=== PATIENT | male | born 1960 | race Caucasian/White ===

== ENCOUNTER 2018-10-23 16:54 | Emergency (ER) | payer BC, OTHER ==
[2018-10-23] MEDS ORDERED: Aspirin 81 MG Tab.Chew PO ONE (17:01)
--- NOTE | 2018-10-23 17:04 | EDM.PDOC ---
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 No N/V/ D no diaphoresis. No trauma, he has occ a dry cough. No other acute medical issues. BP 154/94 Pulse 95 RR 18 Pulse ox 98% on RA temp 36.8 Onset Date: 10/23/18 Onset Time: 12:00 Duration: Hour(s):, Intermittent, Improving Location: Reports: Chest Quality: Reports: Burning, Dull Severity: Mild Improves with: Reports: Rest Worsens with: Reports: Movement Context: Reports: Other Associated Symptoms: Reports: Chest Pain Chest Pain Score (Numeric/FACES): 4 - Related Data Allergies Allergy/AdvReac Type Severity Reaction Status Date / Time Penicillins Allergy Cannot Verified 10/23/18 17:23 Remember Home Meds: Home Meds NK [No Known Home Meds] 10/23/18 [History] ED ROS GENERAL - Review of Systems Review Of Systems: See Below Constitutional: Reports: No Symptoms HEENT: Reports: No Symptoms Respiratory: Reports: No Symptoms Cardiovascular: Reports: Chest Pain Endocrine: Reports: No Symptoms GI/Abdominal: Reports: No Symptoms : Reports: No Symptoms Musculoskeletal: Reports: No Symptoms Skin: Reports: No Symptoms Neurological: Reports: No Symptoms Psychiatric: Reports: No Symptoms Hematologic/Lymphatic: Reports: No Symptoms Immunologic: Reports: No Symptoms ED EXAM, GENERAL - Physical Exam Exam: See Below Exam Limited By: No Limitations General Appearance: Alert, WD/WN, Mild Distress Eye Exam: Bilateral Eye: Normal Inspection Ears: Normal External Exam Ear Exam: Bilateral Ear: Auricle Normal Nose: Normal Inspection, Normal Mucosa, No Blood Throat/Mouth: Normal Inspection, Normal Lips, Normal Voice, No Airway Compromise Head: Atraumatic, Normocephalic Neck: Normal Inspection, Supple, Non-Tender, Full Range of Motion Respiratory/Chest: No Respiratory Distress, Lungs Clear, Normal Breath Sounds, Other (tender ant chest wall) Cardiovascular: Normal Peripheral Pulses, Regular Rate, Rhythm, No Edema, No Gallop, No JVD, No Murmur, No Rub Peripheral Pulses: 1+: Brachial (R) GI/Abdominal: Normal Bowel Sounds, Soft, Non-Tender, No Organomegaly, No Distention, No Abnormal Bruit, No Mass, Pelvis Stable (Male) Exam: No Hernia Rectal (Males) Exam: Deferred Back Exam: Normal Inspection, Full Range of Motion Extremities: Normal Inspection, Normal Range of Motion, Non-Tender, No Pedal Edema, Normal Capillary Refill Neurological: Alert, Oriented, CN II-XII Intact, Normal Cognition, Normal Gait Psychiatric: Normal Affect, Normal Mood Skin Exam: Warm, Dry, Intact, Normal Color, No Rash Lymphatic: No Adenopathy EKG INTERPRETATION EKG Date: 10/23/18 Time: 16:55 Rhythm: NSR Rate (Beats/Min): 97 [place]: Normal P-Wave: Present (prolonged SD interwal) QRS: Normal ST-T: Normal QT: Normal Comparison: NA - No Prior EKG Course - Vital Signs Text/Narrative:: 58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 No N/V/ D no diaphoresis. No trauma, he has occ a dry cough. No other acute medical issues. CAD risk: Tobacco use BP 154/94 Pulse 95 RR 18 Pulse ox 98% on RA temp 36.8 PE: WNWD muscular male with ant chest wall pain, worse with deep inspirations and pressure applied to his chest wall. Imaging: CXR 2 views: NAD, official report is pending Labs: CBC, BMP including D Dimer and troponin were all neg Impression: Atypical chest pain Tx: ASA, Toradol, ICE Reexam: Pain subsided Plan: D/C with instructions Last Recorded V/S: Last Vital Signs Temp 36.9 C 10/23/18 16:54 Pulse 95 10/23/18 16:54 Resp 18 10/23/18 16:54 BP 129/82 10/23/18 17:49 Pulse Ox 98 10/23/18 16:54 - Orders/Labs/Meds Orders: Active Orders 24 hr Category Date Time Status EKG Documentation Completion [RC] ASDIRECTED Care 10/23/18 17:03 Active CXR [Chest 2V] [CR] Stat Exams 10/23/18 17:01 Taken Peripheral IV Insertion Adult [OM.PC] Routine Oth 10/23/18 17:20 Ordered EKG 12 Lead [EK] Routine Ther 10/23/18 17:03 Ordered Labs: Laboratory Tests 10/23/18 10/23/18 10/23/18 Range/Units 17:13 17:13 17:13 WBC 9.8 (4.5-12.0) X10-3/uL RBC 4.70 (4.30-5.75) x10(6)uL Hgb 14.7 (11.5-15.5) g/dL Hct 42.3 (30.0-51.3) % MCV 90.0 (80-96) fL MCH 31.3 (27.7-33.6) pg MCHC 34.8 (32.2-35.4) g/dL RDW 14.2 (11.5-15.5) % Plt Count 254 (125-369) X10(3)uL MPV 8.7 (7.4-10.4) fL Add Manual Diff Yes Neutrophils % (Manual) 75 (46-82) % Band Neutrophils % 1 (0-6) % Lymphocytes % (Manual) 15 (13-37) % Monocytes % (Manual) 7 (4-12) % Eosinophils % (Manual) 2 (0-5) % D-Dimer, Quantitative < 0.19 (0.0-0.59) mg/LFEU Sodium 136 (135-145) mmol/L Potassium 3.7 (3.5-5.3) mmol/L Chloride 102 (100-110) mmol/L Carbon Dioxide 28 (21-32) mmol/L BUN 9 (7-18) mg/dL Creatinine 0.9 (0.70-1.30) mg/dL Est Cr Clr Drug Dosing TNP Estimated GFR (MDRD) > 60 (>60) BUN/Creatinine Ratio 10.0 (9-20) Glucose 106 (80-116) mg/dL Calcium 9.3 (8.6-10.2) mg/dL Troponin I (<0.017-0.056) ng/mL 10/23/18 Range/Units 17:13 WBC (4.5-12.0) X10-3/uL RBC (4.30-5.75) x10(6)uL Hgb (11.5-15.5) g/dL Hct (30.0-51.3) % MCV (80-96) fL MCH (27.7-33.6) pg MCHC (32.2-35.4) g/dL RDW (11.5-15.5) % Plt Count (125-369) X10(3)uL MPV (7.4-10.4) fL Add Manual Diff Neutrophils % (Manual) (46-82) % Band Neutrophils % (0-6) % Lymphocytes % (Manual) (13-37) % Monocytes % (Manual) (4-12) % Eosinophils % (Manual) (0-5) % D-Dimer, Quantitative (0.0-0.59) mg/LFEU Sodium (135-145) mmol/L Potassium (3.5-5.3) mmol/L Chloride (100-110) mmol/L Carbon Dioxide (21-32) mmol/L BUN (7-18) mg/dL Creatinine (0.70-1.30) mg/dL Est Cr Clr Drug Dosing Estimated GFR (MDRD) (>60) BUN/Creatinine Ratio (9-20) Glucose (80-116) mg/dL Calcium (8.6-10.2) mg/dL Troponin I < 0.017 L (<0.017-0.056) ng/mL Meds: Medications Discontinued Medications Generic Name Dose Route Start Last Admin Trade Name Freq PRN Reason Stop Dose Admin Aspirin 324 mg 10/23/18 17:01 10/23/18 17:05 Aspirin PO 10/23/18 17:02 324 mg ONETIME ONE Administration Ketorolac Tromethamine 30 mg 10/23/18 18:09 10/23/18 18:47 Toradol IVPUSH 10/23/18 18:10 30 mg ONETIME ONE Administration Nitroglycerin 0.4 mg 10/23/18 17:30 10/23/18 17:49 Nitrostat SL 0.4 mg Q5M PRN Administration Chest Pain Sodium Chloride 10 ml 10/23/18 17:20 10/23/18 18:48 Saline Flush FLUSH 10 ml ASDIRECTED PRN Administration Keep Vein Open Departure - Departure Time of Disposition: 19:00 Disposition: Home, Self-Care 01 Condition: Good Clinical Impression: Atypical chest pain Instructions: Nonspecific Chest Pain Referrals: PCP,None [Primary Care Provider] - Forms: ED Department Discharge Additional Instructions: Please take Motrin with food for pain, please f/u with your PMD, please come back if your symptoms get worse acutely, avoid tobacco use and spicy food - My Orders Last 24 Hours: My Active Orders 10/23/18 17:01 CXR [Chest 2V] [CR] Stat 10/23/18 17:03 EKG Documentation Completion [RC] ASDIRECTED EKG 12 Lead [EK] Routine 10/23/18 17:20 Peripheral IV Insertion Adult [OM.PC] Routine - Assessment/Plan Last 24 Hours: My Active Orders 10/23/18 17:01 CXR [Chest 2V] [CR] Stat 10/23/18 17:03 EKG Documentation Completion [RC] ASDIRECTED EKG 12 Lead [EK] Routine 10/23/18 17:20 Peripheral IV Insertion Adult [OM.PC] Routine
[2018-10-23] MEDS: Sodium Chloride 0.9% 10 ML Syringe FLUSH PRN ×2 (17:25→18:48)
[2018-10-23] MEDS: Nitroglycerin 0.4 MG Tab.SL SL PRN ×2 (17:34→17:49)
[2018-10-23] MEDS ORDERED: Ketorolac 30 MG/ML SDV IVPUSH ONE (18:09)
--- NOTE | 2018-10-24 11:19 | CR ---
INDICATION: Chest pain. CHEST: PA and lateral views of the chest were obtained 10/23/18 - no comparison studies were available. The heart appears to be slightly enlarged in the area of the left ventricle. The aorta is minimally tortuous. Minimal degenerative changes are noted in the mid thoracic spine. Overlying EKG leads are noted. An active infiltrate or effusion was not identified. IMPRESSION: ASHD with LVE. MTDD
== END 2018-10-23 19:05 | disposition home or self-care (01) ==
LOC: FB.ED 16:54
DX: R07.89 Other chest pain (principal); F17.210 Nicotine dependence, cigarettes, uncomplicated; Z88.0 Allergy status to penicillin
CPT/HCPCS: 36415; 71046; 80048; 84484; 85025; 85379; 93005; 96374; 99285; A9270; J1885